=== PATIENT | female | born 1945 | race Caucasian/White ===

== ENCOUNTER 2023-12-25 00:26 | Emergency (ER) | payer MEDICARE, OTHER, SELFPAY ==
[2023-12-25 00:33] VITALS: BP 118/63
[2023-12-25 00:38] VITALS: BP 118/63
[2023-12-25 01:05] VITALS: BP 108/83
--- NOTE | 2023-12-25 01:19 | ED.GENMED ---
History of Present Illness
General
Chief Complaint: Anal/Rectal Problem
Source: patient and family (Daughter)
Exam Limitations: dementia (Alzheimers)
Time Seen by Provider: 12/25/23 00:40
History of Present Illness
History of Present Illness:
This is a 78 year old female that is brought in by her daughter with c/o constipation. State that the last BM that she had was on Saturday. The one before that was a week ago. States that she is on FiberCon and they have tried to increase her water
intake. State that she also takes Colace 1 tablet BID. Denies any fever, chills, chest pain, SOB, abd pain, nausea, vomiting, diarrhea, headache, dizziness, urinary burning.
Past History
Past History
ED Past Medical History: Asthma, GERD, HTN, Hypercholesterolemia, NIDDM, Hypothyroidism, Psychiatric (Depression) and Other (dementia (Alzheimer's) Back pain, Ovarian cyst, Left ankle fracture)
ED Past Surgical History: Cardiac, Cholecystectomy, Orthopedic (Left knee replacement, Right knee surgery, Bursectomy Left shoulder), Tonsilectomy and Other (Deviated septum, Breast cyst removed)
Social History
Tobacco: Former smoker
Alcohol: None
Drug: None
Personal:
Living: with family
Employment: Retired
Family History
Family History: Other (Grandmother with colon cancer)
Review of Systems
Review of Systems
Other source history: family
All Other Systems: ROS reviewed and negative except as documented in HPI and ROS
Constitutional: Reports no symptoms; Denies fever or chills
EENT: Reports no symptoms
Respiratory: Reports no symptoms; Denies cough or trouble breathing
Cardiac: Reports no symptoms; Denies chest pain
ABD/GI: Reports constipated; Denies abdominal pain, nausea, vomiting or diarrhea
: Reports no symptoms; Denies dysuria, frequency or urgency
Musculoskeletal: Reports no symptoms
Skin: Reports no symptoms
Neurological: Reports no symptoms; Denies dizzy or headache
Psychiatric: Reports no symptoms
Phy Exam
General Physical Exam
General Presentation: no apparent distress
General age: appears stated age
General Skin: warm and dry
General Habitus: elderly
General Mental: usual mental status
General Hydration: appears well hydrated
ENT Exam
ENT Exam: TM's normal, pharynx normal and neck supple
Eye Exam
Eye Exam: EOMI
Cardiovascular Exam
Cardiovascular Exam: regular rate/rhythm, no edema and normal peripheral pulses
Pulmonary Exam
Pulmonary Exam: lungs clear, no respiratory distress, no rales, chest non tender, no crackles, no rhonchi, no wheezing and no cough
Gastrointestinal Exam
Gastrointestinal Exam: normal bowel sounds, non tender, soft, no organomegaly, no pulsatile mass, non distended and other (Disimpacted for a large amount of brown stool )
Musculoskeletal Exam
Musculoskeletal Exam: full ROM and no edema
Skin Exam
Skin Exam: normal color, warm/dry, no rash and no petechia
Psychiatric Exam
Psychiatric Exam: normal mood/affect
Course
Vital Signs
Initial and Last Documented VS:
Initial Vital Signs
Temp Pulse Resp BP Pulse Ox
97.8 F 67 18 118/63 93
12/25/23 00:33 12/25/23 00:33 12/25/23 00:33 12/25/23 00:33 12/25/23 00:33
Last Documented Vital Signs
Temp Pulse Resp BP Pulse Ox
97.8 F 67 18 118/63 93
12/25/23 00:33 12/25/23 00:33 12/25/23 00:33 12/25/23 00:33 12/25/23 00:33
MDM/Problems Addressed
Differential Diagnosis Includes:
Constipation
MDM/Problems Addressed:
This is a 78 year old female that is brought in by family with c/o constipation. States that she she has not had a BM since Saturday and was crying earlier that she needed to come to the hospital that she had abd pain.
Patient was disimpacted for a large amount of stool and then went little more on the toilet. States that she did not have to go any more. Explained to daughter that she can go up on the Colace to 2 tablets in the morning and 2 at night. Will give
patient a bottle of magnesium citrate to get thinks moved form the top down. Patient can use Miralax daily and to increase her water intake. Patient can also try Prune juice and mix this with apple juice in equal amounts, heat and drink daily.
Popcorn is also a natural laxative. Patient to return with any concerns.
Chronic conditions affecting care:
Dementia
Acute Exacerbation and/or Progression of Chronic Illness:
Dementia
*Pulse Oximetry
Patient hypoxic: no
*EKG
Interpreted by ED Provider?: NA
Rate: EKG- N/A
*Showcase Trimmer Interpretation
Rate: Showcase Trimmer- N/A
*Critical Care Note
Total Time (30-74mins, 75-104mins- exclusive of procedures): Not Applicable
ED Attending Note
-
Portions of this chart may have been created with voice recognition software.� Occasional wrong word or��sound alike� substitutions may have occurred due to the inherent limitations of voice recognition software.
Discharge Plan
Departure
Patient Disposition: Home (Routine Discharge)
Date of Disposition: 12/25/23
Time of Disposition: 01:29
Patient with high blood pressure during this ER visit?: No
Condition: Good
Covid-19: Not Applicable
Discharge Problem:
Acute constipation
Instructions: Constipation, Adult (DC)
Prescriptions:
No Action
levothyroxine [Synthroid] 50 MCG tablet
50 mcg PO DAILY
paroxetine HCl 20 MG tablet
20 mg PO DAILY
doxepin 50 mg Capsule
50 mg PO HS
clonazepam 0.5 mg Tablet
0.5 mg PO HS
Patient Comments:
12/10/2022: per PDMP, last filled 10/18/22, 90 tabs for 30 days from [facility]
simvastatin 40 mg Tablet
40 mg PO QPM
pantoprazole 40 mg Tablet,Delayed Release (Dr/Ec)
40 mg PO DAILY@1500
losartan 100 mg Tablet
100 mg PO DAILY
ezetimibe 10 mg Tablet
10 mg PO QPM
memantine 10 mg Tablet
10 mg PO BID
meclizine 25 mg Tablet
25 mg PO Q8HPRN PRN (Reason: Dizziness) Qty: 10 0RF
gabapentin 100 mg capsule
200 mg PO TID Qty: 180 0RF
Referrals:
UNKNOWN - PT DOES,NOT KNOW [Family Provider] -
Activity Restrictions/Additional Instructions:
As discussed, you have had a large amount of stool removed. Please drink the entire bottle of Magnesium Citrate. This will work form the top down. This can take up to 6 hours to work. It may also cause some abd cramping. Please use Miralax daily as
directed. You may also increased your Colace to 2 tablets in the morning and night. Please try Prune juice and mix this with apple juice in equal amounts and heat and drink daily. Please increase your water intake to 8-8oz glasses daily. Please
remind patient when she is on the toilet to try and push to have a BM. IF YOU HAVE ANY OTHER CONCERNS PLEASE RETURN TO THE EMERGENCY ROOM.
Interventions
Interventions:
*Risk Screen - Suicide Last Done: 12/25/23 00:33
*General Assessment Last Done: 12/25/23 00:33
*Neglect/Abuse Screening Last Done: 12/25/23 00:33
ED- Fall Risk Assessment Last Done: 12/25/23 00:33
AF-Nnolak-Bzrupxvdvr Assessment Last Done: 12/25/23 00:50
ED-Skin Assessment Last Done: 12/25/23 00:50
Discharge Date and Time
Print Language: WELSH
[2023-12-25] MEDS: CITROMA 300 ML PO (01:54)
== END 2023-12-25 02:00 | disposition home or self-care (01) ==
LOC: EMR 00:26
PROVIDERS: EMERGENCY PHYSICIAN Student in an Organized Health Care Education/Training Program
DX: K59.09 Other constipation (principal); J45.909 Unspecified asthma, uncomplicated; K21.9 Gastro-esophageal reflux disease without esophagitis; I10 Essential (primary) hypertension; E78.00 Pure hypercholesterolemia, unspecified; E11.9 Type 2 diabetes mellitus without complications; E03.9 Hypothyroidism, unspecified; F02.83 Dementia in other diseases classified elsewhere, unspecified severity, with mood disturbance; G30.9 Alzheimer's disease, unspecified; F32.A Depression, unspecified; Z80.0 Family history of malignant neoplasm of digestive organs; Z87.891 Personal history of nicotine dependence; Z90.49 Acquired absence of other specified parts of digestive tract; Z96.652 Presence of left artificial knee joint
CPT/HCPCS: 99282

== ENCOUNTER → 2024-04-03 12:14 | Outpatient (REF) | payer MEDICARE, OTHER, SELFPAY | LOC: HWRAD 12:14 | PROVIDERS: ATTENDING PHYSICIAN Nurse Practitioner Family | DX: R06.01 Orthopnea (principal) | CPT/HCPCS: 71046 ==

== ENCOUNTER 2024-04-26 20:39 | Observation (INO) | payer MEDICARE, OTHER, SELFPAY ==
[2024-04-26] VITALS (17 sets, daily range): BP systolic 103–134; BP diastolic 41–63; PULSE 63; O2SAT 93; BMI 25.9
[2024-04-26 11:26] LABS: % Basophils 1.1 % (0-2); % Eosinophils 0.3 % (0-6); % Immature Granulocytes 0.2 % (0-0.5); % Lymphocytes 13.3 % (20.5-51.1); % Monocytes 15.4 % (1.7-9.3); % Neutrophils 69.7 % (42.2-75.2); Absolute Basophils 0.1 10^3/uL (0-0.2); Absolute Lymphocytes 0.9 10^3/uL (1.2-3.4); Absolute Neutrophils 4.6 10^3/uL (1.4-6.5); Hematocrit 40.1 % (37.0-47.0); Hemoglobin 13.6 g/dL (12.0-16.0); Mean Corp Hgb Conc. 33.9 g/dL (33.0-37.0); Mean Corpuscular Hgb 29.8 pg (27.0-31.0); Mean Corpuscular Volume 87.9 fL (81.0-99.0); Mean Platelet Volume 9.9 fL (7.4-10.4); Nucleated Red Blood Cells % 0 %; Platelet Count 227 10^3/uL (130-400); Red Blood Cell Count 4.56 10^6/uL (4.20-5.40); Red Cell Dist. Width 13.3 % (11.5-14.5); Urine Albumin Negative (Neg - Trace); Urine Bilirubin Negative (Negative); Urine Character Clear (Clear); Urine Color Yellow; Urine Glucose Negative (Negative); Urine Ketone Negative (Negative); Urine Leukocyte Negative (Negative); Urine Nitrite Negative (Negative); Urine Occult Blood Negative (Negative); Urine Specific Gravity 1.015 (<1.030); Urine Urobilinogen Negative (Neg - 1+); White Blood Cell Count 6.6 10^3/uL (4.8-10.8)
[2024-04-26 11:40] LABS: Blood Urea Nitrogen 16 mg/dl (7-17); Calcium 9.1 mg/dl (8.4-10.2); Carbon Dioxide 24 mmol/L (22-30); Chloride 105 mmol/L (98-107); Estimated Creatinine Clearance 48 ml/min; Glucose 126 mg/dl (70-99); Sodium 136 mmol/L (135-145); eGFR > 60.00
[2024-04-26 13:04] LABS: Potassium 4.3 mmol/L (3.5-5.1)
[2024-04-26 13:08] LABS: COVID-19 Antigen Negative (Negative)
[2024-04-26 13:52] LABS: TSH Reflex To Free T4 1.65 uIU/ml (0.47-4.68)
--- NOTE | 2024-04-26 13:54 | EDRN ---
physical therapy currently at the pts bedside
--- NOTE | 2024-04-26 13:56 | ED.GENMED ---
History of Present Illness
General
Chief Complaint: Weakness
Source: patient
Exam Limitations: none
Time Seen by Provider: 04/26/24 12:07
Nursing documentation reviewed up to this point in time: agreed with
History of Present Illness
History of Present Illness:
78year-old female past medical history of dementia hypertension of lipidemia presenting to the emergency department today with increased weakness over the past few days also slid out of bed twice in the last 24 hours difficulty with ambulation as
well. Denies specific injury denies specific symptoms.
Past History
Past History
ED Past Medical History: Asthma, GERD, HTN, Hypercholesterolemia, NIDDM, Hypothyroidism, Psychiatric (Depression) and Other (dementia (Alzheimer's) Back pain, Ovarian cyst, Left ankle fracture)
ED Past Surgical History: Cardiac, Cholecystectomy, Orthopedic (Left knee replacement, Right knee surgery, Bursectomy Left shoulder), Tonsilectomy and Other (Deviated septum, Breast cyst removed)
Social History
Tobacco: Former smoker
Alcohol: None
Drug: None
Personal:
Living: with family
Employment: Retired
Family History
Family History: Other (Grandmother with colon cancer)
Review of Systems
Review of Systems
Allergies reviewed?: Yes
All Other Systems: ROS reviewed and negative except as documented in HPI and ROS
Phy Exam
Physical Exam
Physical Exam:
GENERAL: Alert , in no apparent distress
EYE: pupils equal and reactive
NECK: Supple, no significant adenopathy.
ENT: o/p clr, mmm.
CARDIAC: Regular rate and rhythm .
LUNGS: Clear breath sounds bilaterally, no acute respiratory distress, no wheezes/rales/rhonchi
ABDOMEN: Soft, without focal tenderness, no r/g, no cvat
NEUROLOGICAL: Alert no focal neuro deficits
SKIN: Warm and dry, skin intact.
MUSCULOSKELETAL: No edema, well perfused.
PSYCH: Normal and appropriate interaction.
Course
Orders/Labs/Results
Orders:
Orders
04/26/24 11:06
EKG [Electrocardiogram (*1)] Urgent
Reason for Study: Fatigue / Weakness
04/26/24 11:07
EKG- Treatment ONCE
04/26/24 11:09
Basic Metabolic Panel Urgent
Complete Blood Count/With Diff Urgent
Urinalysis Reflex To Culture Urgent
Date Specimen was Collected: 04/26/24
Time Specimen was Collected: 11:07
04/26/24 12:18
Add On- LAB Urgent
Tests Added?: tsh free t4
CT Head W/o Iv Contrast Urgent
Comment:
Reason For Exam: fall hx of dementia
04/26/24 12:19
Pt Eval And Treat Urgent
Activity Level: Ambulate
04/26/24 12:40
COVID-19 Antigen Urgent
Source: Nasal Swab
Potassium Urgent
TSH Reflex To Free T4 Urgent
Comment: ADD ON
Influenza A+B Rapid Molecular Urgent
MARI Source: Nasal Swab
Specimen Description:
04/26/24 13:58
Case Management Consult ONCE
Case Management Consult: Discharge Planning
Abnormal Lab Results
04/26/24
11:09
Absolute Lymphs (auto) 0.9 L 10^3/uL
(1.2-3.4)
Absolute Monos (auto) 1.0 H 10^3/uL
(0.1-0.6)
Lymphocytes % 13.3 L %
(20.5-51.1)
Monocytes % 15.4 H %
(1.7-9.3)
Glucose 126 H mg/dl
(70-99)
04/26/24 11:09
04/26/24 12:40
Vital Signs
Initial and Last Documented VS:
Initial Vital Signs
Pulse Resp Pulse Ox
63 19 91
04/26/24 11:08 04/26/24 11:08 04/26/24 11:08
Last Documented Vital Signs
Temp Pulse Resp BP Pulse Ox
99.6 F 64 20 103/52 94
04/26/24 11:21 04/26/24 16:14 04/26/24 16:14 04/26/24 16:14 04/26/24 16:14
MDM/Problems Addressed
MDM/Problems Addressed:
78-year-old female presenting to the emergency department today with concerns of generalized weakness fatigue sliding out of bed twice in the last 24 hours. Vital signs normal on arrival patient no distress no focal symptoms. Labs unremarkable
urinalysis normal head CT negative EKG without emergent findings. No signs of emergent pathology. At this point patient unable to ambulate well. Patient was seen by PT and still unable to ambulate without significant assistance unsafe to go home
in this condition may be secondary to deconditioning due to viral illness. Plan to admit to the hospital for reassessment and potential placement as needed. Case management was consulted as well and did see the patient.
*Critical Care Note
Total Time (30-74mins, 75-104mins- exclusive of procedures): Not Applicable
ED Attending Note
-
Portions of this chart may have been created with voice recognition software.� Occasional wrong word or��sound alike� substitutions may have occurred due to the inherent limitations of voice recognition software.
Discharge Plan
Departure
Patient Disposition: Admit
Date of Disposition: 04/26/24
Time of Disposition: 17:50
Admit to: Med/Surg
Admit to doctor: gissely
Presentation/result/management discussed w/ accepting MD/DO: Hospitalist
Patient with high blood pressure during this ER visit?: No
Condition: Good
Covid-19: Not Applicable
Discharge Problem:
Ambulatory dysfunction, Acute viral syndrome
Prescriptions:
No Action
levothyroxine [Synthroid] 50 MCG tablet
50 mcg PO DAILY
paroxetine HCl 20 MG tablet
20 mg PO DAILY
doxepin 50 mg Capsule
50 mg PO HS
clonazepam 0.5 mg Tablet
0.5 mg PO HS
Patient Comments:
12/10/2022: per PDMP, last filled 10/18/22, 90 tabs for 30 days from [facility]
simvastatin 40 mg Tablet
40 mg PO QPM
ezetimibe 10 mg Tablet
10 mg PO QPM
memantine 10 mg Tablet
10 mg PO BID
docusate sodium [Colace] 100 mg Capsule
100 mg PO DAILY
aripiprazole [Abilify] 2 mg Tablet
2 mg PO HS
rivastigmine 4.6 mg/24 hour Patch 24 Hour
4.6 mg TRANSDERMAL DAILY
gabapentin 100 mg capsule
300 mg PO HS
Referrals:
Alexandru Queen CRNP [Family Provider] -
Interventions
Interventions:
*Risk Screen - Suicide Last Done: 04/26/24 11:21
*General Assessment Last Done: 04/26/24 11:21
*Neglect/Abuse Screening Last Done: 04/26/24 11:21
*ED- Fall Risk Assessment Last Done: 04/26/24 11:21
*ED COVID-19 Vaccine History Last Done: 04/26/24 11:21
ED- Cardiac Assessment Last Done: 04/26/24 11:21
ED- Neurological Assessment Last Done: 04/26/24 11:21
ED- Pulmonary Assessment Last Done: 04/26/24 11:21
Discharge Date and Time
Print Language: HUNGARIAN
--- NOTE | 2024-04-26 14:59 | EDRN ---
awaiting for case management to come to the pts bedside
--- NOTE | 2024-04-26 16:14 | EDRN ---
case management currently at the pts bedside
--- NOTE | 2024-04-26 16:25 | CM ---
Patient seen at bedside with patient daughter. Patient daughter states that patient lives with her in a 2 bedroom home with caregivers from 9-5 Saturday through Saturday and the family helps on the weekend. Patient was unable to stand overnight
and therapy saw her and are recommending SNF placement. Patient daughter does not want patient to go to a SNF when paying privately due to concerns about care. CM reviewed options and patient daughter wants to talk to her father about options.
Physician plan is to admit for short stay to determine if patient is able to return. Patient PCP is Dr. Killian and they use the [facility] [place]. CM will continue to follow for discharge planning needs.
Plan; home with aides/ watch for VN needs vs SNF pending patient choice.
watch for OBS vs INP pending physician assessment.
--- NOTE | 2024-04-26 16:37 | EDRN ---
case management currently at the pts bedside speaking with the pts daughter, the pts daughter stated that the pt needed to urinate, this RN explained the use of the pure wick and the pt and the pts daughter agreed, this RN put pure wick in place,
will continue to monitor the pt closely
--- NOTE | 2024-04-26 20:04 | HPS.HSE ---
Addendum entered and electronically signed by Richard Howard MD 04/26/24 22:38:
Daughter called her father
Patient with HX Dementia.
Father/ Spouse ( NOK ) indicate patient is FULL CODE. NOT DNR
Addendum entered and electronically signed by Richard Howard MD 04/26/24 20:36:
Code status; DNR confirmed by daughter at bed side
Original Note:
Family Physician
-
Family Physician: LEWIS Santos
Chief Complaint
-
increased weakness and fatigue
History of Present Illness
HPI
78F former smoker Lives in private residence with adamdery , HX dementia, HTN, HLD, NIDDM, Hypothyroidism, Depression and Back pain sen at ER;
- increased weakness over the past few days also slid out of bed twice in the last 24 hours
- Unable to walk today due to generalized weakness/fatigue. .
- PT saw and unable to ambulate without heavy assist.
ER Evaluation:
Vital signs normal on arrival patient no distress no focal symptoms.
Labs unremarkable
NEG UA
NEG HCT for acute pathology
EKG without emergent findings.
No signs of emergent pathology
ROS
Denies specific injury denies specific symptoms.
Medical History
Past Medical History
Past Medical History: Reports Dementia, HTN, Hypercholesterolemia, NIDDM and Psychiatric (depression)
Past Surgical History: Reports Other
Social History
Unable to obtain full social history at this time due to: Dementia
Tobacco: Former Smoker
Alcohol: None
Drug: None
Family History
Family History: Not pertinent
Allergies / Home Medications
Allergies reflects when Allergies were last updated in [facility].
Home Medications with original date entered in [facility]
Allergy/Medication List:
Allergies
Allergy/AdvReac Type Severity Reaction Status Date / Time
cinnamon Allergy Unknown Verified 12/25/23 00:29
oxycodone HCl [From Percocet] Allergy nausea & Verified 12/25/23 00:29
dizziness
propoxyphene napsylate Allergy nausea & Verified 12/25/23 00:29
[From Darvocet-N 100] dizziness
tramadol HCl [From Ultram] Allergy throws up Verified 12/25/23 00:29
MOLD AND MILDEW Allergy NASAL Uncoded 12/25/23 00:29
CONGESTION
Home Medications
levothyroxine 50 mcg tablet (Synthroid) 50 mcg PO DAILY Hypothyroidism 07/21/08
paroxetine HCl 20 mg tablet 20 mg PO DAILY anxiety 07/21/08
clonazepam 0.5 mg tablet 0.5 mg PO HS anxiety 12/10/22
doxepin 50 mg capsule 50 mg PO HS Depression 12/10/22
ezetimibe 10 mg tablet 10 mg PO QPM Hyperlipidemia 12/10/22
memantine 10 mg tablet 10 mg PO BID Dementia 12/10/22
simvastatin 40 mg tablet 40 mg PO QPM Hyperlipidemia 12/10/22
aripiprazole 2 mg tablet (Abilify) 2 mg PO QPM 04/26/24
docusate sodium 100 mg capsule (Colace) 100 mg PO DAILY 04/26/24
gabapentin 300 mg capsule 300 mg PO HS 04/26/24
polyethylene glycol 3350 17 gram/dose oral powder (Miralax) 17 g PO DAILY 04/26/24
rivastigmine 9.5 mg/24 hour transdermal patch 9.5 mg transdermal QPM 04/26/24
Review of Systems
-
Unable to obtain full review of systems at this time due to: Dementia
History Source: Physician
Constitutional: Reports Fatigue; Denies Fever, Weight Gain or Weight Loss
EENT: Denies Sore Throat, Mouth Pain or Mouth Swelling
Respiratory: Denies Cough, Hemoptysis or Trouble Breathing
Cardiac: Denies Chest Pain, Diaphoresis, Palpitations or Syncope
Abdomen/GI: Denies Abdominal Pain, Nausea, Vomiting, Diarrhea or Constipated
: Denies Dysuria, Frequency or Flank Pain
Musculoskeletal: Denies Joint Pain, Joint Swelling, Muscle Pain or Muscle Stiffness
Skin: Denies Itching or Rash
Neurological: Reports Dizzy; Denies Headache, Weakness or Numbness
Endocrine: Denies Polyuria, Polydipsia or Temp Intolerance
Hematologic/Lymphatic: Denies Bleeding, Swollen Glands or Bruising
Psych: Reports Calm, Depression, Anxiety and Dementia
Physical Exam
Vital Signs
Vital Signs
Temp Pulse Resp BP Pulse Ox
99.6 F 64 20 117/49 94
04/26/24 11:21 04/26/24 16:45 04/26/24 16:45 04/26/24 19:12 04/26/24 19:12
Physical Exam
General: Well Developed, Well Nourished, No Apparent Distress and Conversant
HEENT: NormoCephalic, Moist mucous membranes and Atraumatic
Respiratory: Clear
Cardiac: S1/S2 and Regular Rhythm; No Murmur or Rub
GI: Soft, Non Tender, Non Distended and Normal Bowel Sounds; No Organomegaly
Rectal: Deferred by Provider
Musculoskeletal: No Clubbing, No Cyanosis and No Edema
Skin: No Rash
Neuro: Nonfocal/grossly intact
Laboratory Results
-
04/26/24 11:09
04/26/24 12:40
Laboratory Results
Total Bilirubin Cancelled 04/26/24 11:09
AST Cancelled 04/26/24 11:09
ALT Cancelled 04/26/24 11:09
Alkaline Phosphatase Cancelled 04/26/24 11:09
Data Reviewed
-
CT Scan: Report Reviewed by me
Medical Tests (Nuc Med, Echo, EKG etc): Report Reviewed by me
Lab Data: Labs Reviewed by me
Old Records: Reviewed
Impression/Plan
-
Data
Laboratory Tests
04/26/24 04/26/24
11:09 12:40
WBC 6.6
Hgb 13.6
Plt Count 227
Sodium 136
Potassium 4.3
Creatinine 0.9
eGFR > 60.00
TSH (Reflex) 1.65
CT Head W/o Iv Contrast
- No evidence of acute intracranial abnormality
Last hospitalist admission: 12/10/22 - 12/11/22 DC Dx; Dizziness
ASSESSMENT & PLAN
Suspect viral syndrome with mild URI symptom complicated by general debility with acute on chroni ambulatory dysfunction and further deconditioning demented elderly lady on [facility] pharmacy
Unable to walk today due to generalized weakness/fatigue.
HX chronic ambulatory dysfunction : use walket
- PT saw and unable to ambulate without heavy assist.
- Vital signs normal on arrival patient no distress no focal symptoms.
- Labs unremarkable
- Covid/flu neg
- NEG UA
- NEG HCT for acute pathology
- EKG without emergent findings.
- No signs of emergent pathology
- PT
- CRM consult for DC planning
Poly pharmacy for Depression and dementia Alzheimer type ( [facility])
Chr inosemia on Doxepin
Chr LBP
- cont Abilify, Clonazepam, Doxepin
- Hold Paroxetine for now
- On Rivastigmine and memantine
Pre existing condition:
Benign HTN
Hypercholesterolemia on Simvastatin and Ezetimibe
NIDDM
Hypothyroidism on LT4; nl TSH
- cont. all OP Meds
DVT Px: LMWH
Full code
Obs MS
[2024-04-26] MEDS: NSS 1000 IV (21:17)
[2024-04-26] MEDS: KLONOPIN 0.5 MG PO (21:17)
[2024-04-26] MEDS: ABILIFY 2 MG PO (23:11)
[2024-04-26] MEDS: NAMENDA 10 MG PO (23:11)
[2024-04-26] MEDS: SINEQUAN 50 MG PO (23:11)
[2024-04-27] VITALS (7 sets, daily range): BP systolic 136–148; BP diastolic 58–81; PULSE 64; BMI 25.7
[2024-04-27] MEDS: SYNTHROID 50 MCG PO (06:01)
[2024-04-27 06:30] LABS: Hematocrit 39.4 % (37.0-47.0); Hemoglobin 13.3 g/dL (12.0-16.0); Mean Corp Hgb Conc. 33.8 g/dL (33.0-37.0); Mean Corpuscular Volume 88.7 fL (81.0-99.0); Mean Platelet Volume 9.7 fL (7.4-10.4); Platelet Count 206 10^3/uL (130-400); Red Blood Cell Count 4.44 10^6/uL (4.20-5.40); Red Cell Dist. Width 13.3 % (11.5-14.5); White Blood Cell Count 6.1 10^3/uL (4.8-10.8)
[2024-04-27 07:06] LABS: Blood Urea Nitrogen 15 mg/dl (7-17); Calcium 8.8 mg/dl (8.4-10.2); Carbon Dioxide 21 mmol/L (22-30); Chloride 107 mmol/L (98-107); Estimated Creatinine Clearance 48 ml/min; Glucose 128 mg/dl (70-99); Potassium 3.8 mmol/L (3.5-5.1); Sodium 140 mmol/L (135-145); eGFR > 60.00
--- NOTE | 2024-04-27 07:07 | EDRN ---
this RN was receiving verbal report from previous assistant casino shift manager nurse Kalin RN, while this RN was getting report the pts daughter approached this RN and Kalin RN at the nurses station and stated that she is 'very upset' about her mother still being
in the ER and feels that this is 'not conducive to healing', the pts daughter stated that her mother, the pt, did not sleep all night and the pts daughter stated that she doesn't understand why the pt is still down here and 'not upstairs in a bed
where it is quiet and she can rest, i mean she is not your normal patient this is ridiculous', this RN apologized to the pts daughter for her frustration and this RN stated that this RN will notify the pts daughter when a bed is available
--- NOTE | 2024-04-27 07:30 | EDRN ---
the pts daughter approached this RN in the hallway and expressed her concerns again regarding her mother, the pt, still being in the ER, this RN notified the charge nurse and the nursing supervisor shearing Eleazar
--- NOTE | 2024-04-27 07:39 | EDRN ---
this RN noticed that the pts daily medications were not ordered, this RN will notify the provider, the pts daughter approached this RN at the nurses station and notified this RN that the pts care given will be coming to be with the pt
--- NOTE | 2024-04-27 08:08 | EDRN ---
the pt approached this RN at the nurses station and asked this RN to come to the pts bedside, this RN entered the pts room and the pts daughter stated that,'I am concerned, i need to see a doctor to speak to them about the plan for my mother, she is
stuck down here and i just need some answers, i need to know what medications she is going to be put on and i need to know the plan for today and i also want to get my mother some breakfast so how does that work', this RN provided the pts daughter
with a menu and stated that she could call down to the kitchen and order her mother breakfast and this RN notified the pts daughter that the pt is on a cholesterol lowering diet, this RN reached out to the attending Dr. Alegre and notified the
provider that the pts daughter wishes to speak with them, Dr. Alegre is currently at the pts bedside
--- NOTE | 2024-04-27 08:21 | EDRN ---
Dr. Alegre currently still at the pts bedside
--- NOTE | 2024-04-27 08:31 | EDRN ---
Dr. Aelgre updated this RN on the pts plan of care and will order the rest of the pts daily medication, the provider will also change the pts diet to a regular diet
--- NOTE | 2024-04-27 08:42 | EDRN ---
the pts daughter approached this RN at the nurses station and asked this RN to come to the pts bedside, the pts daughter stated, 'Her urine canister is almost full and i would like it changed', this RN changed the pts urine canister that is attacked
to the pure wick and suction was turned on, the pts brief is clean and dry, the pt was repositioned in stretcher with Monica RN for comfort, no s/s of distress, the pts daughter ordered the pts breakfast
[2024-04-27 09:09] LABS: Glycohemoglobin (HgbA1c) 6.8 % (4.0-5.6)
--- NOTE | 2024-04-27 10:17 | EDRN ---
the pts daughter approached this RN at the nurses station and asked to speak to a doctor, this RN notified Dr. Alegre
[2024-04-27] MEDS: NSS 1000 IV (10:25)
[2024-04-27] MEDS: COLACE 100 MG PO (10:25)
[2024-04-27] MEDS: MIRALAX 17 GRAMS PO (10:25)
[2024-04-27] MEDS: PAXIL 20 MG PO (10:25)
[2024-04-27] MEDS: NAMENDA 10 MG PO ×2 (10:25→20:49)
--- NOTE | 2024-04-27 10:27 | EDRN ---
the pt was able to take AM medication with water with no issues, this RN notified the pts daughter that Dr. Alegre will come to the pts bedside at 1139
--- NOTE | 2024-04-27 10:32 | EDRN ---
the pts daughter is standing at the pts door staring at this RN, this RN asked the pt if there is anything that she needed and the pts daughter stated that she wants physical therapy at the pts bedside and that she wants to speak to a provider, this
RN notified the pts daughter that this RN reached out to Dr. Alegre and he stated that she was going to come to the pts bedside around 1130, this RN also notified the pts daughter that this RN could reach out to physical therapy to see what time
they would be in to see the pt
--- NOTE | 2024-04-27 10:49 | EDRN ---
the pts daughter pressed the call dietz and this RN and Monica AVELAR entered the pts room, the pts daughter wanted the pt hooked back up to the pure wick, this RN notified the pts daughter that the pt was already on the pure wick, the pts daughter
stated that she and the pts aid turned off the suction to the pure wick, this RN turned the suction for the pure wick back on, the pts daughter asked if the pt was going to get out of bed today and this RN notified the pts daughter that physical
therapy would be down to assess the pt, the pts daughter asked when physical therapy would be down and this RN notified the pts daughter that this RN would try to find out, the pt is resting in stretcher in the lowest position, side rails up x2,
call dietz within reach, HOB elevated no s/s of distress, VS obtained and WNL, the pts brief is currently still clean and dry, per the pts daughter the pt ate all of her breakfast, will continue to monitor the pt closely
--- NOTE | 2024-04-27 11:25 | EDRN ---
this RN asked the community education specialist to call physical therapy to see when they are coming to assess the pt and they stated that they would come as soon as they could
--- NOTE | 2024-04-27 11:57 | EDRN ---
the pts daughter pressed the call dietz and this RN entered the pts room, the pts daughter stated that she thinks her mother's brief is wet, this RN checked the pts brief and it is clean and dry, the pts daughter stated, 'It sounds like something wet
is coming out', this RN explained to the pts daughter that the pt is actively urinating, provider stepped into the pts room, will continue to monitor the pt closely
--- NOTE | 2024-04-27 12:08 | EDRN ---
Dr. Cuellar entered the pts room as well as this RN, Dr. Cuellar discussed the pts plan of care with the pts daughter, the pts daughter again expressed her frustration and dissatisfaction with the pt being in the ER and not in a 'room upstairs', this RN
apologized to the pts daughter for her frustration, this RN notified the charge nurse and nursing supervisor [employer]
--- NOTE | 2024-04-27 12:51 | W.PN.HOSP.TC ---
Today's Communication/Plan
-
* PT-OT.
* Continue home medications.
* Hydroxyzine for anxiety.
Assessment / Plan
Assessment / Plan
Assessment
Fifi Keith, 78-year-old female, has felt fatigued and weak for the past day or so. She had a hard time getting out of bed and then slipped onto the floor; was unable to get up and had to call 911. They helped her get back to bed, but
subsequently she was unable to get out of bed. Her also had a heart attack a week ago and is unable to take care of her. Her daughter is overwhelmed with taking care of both and came to the hospital due to her persistent ambulatory issues.
In the ED, the patient also had a cough and nasal congestion.
Impression and plan
Acute viral upper respiratory infection
- Work up, including CXR, UA, blood work, CT head, ECG, COVID-19, inflenza and physical exam unremarkable for acute pathologies.
- Mild cough and nasal congestion noted.
- Likely that the viral URI worsened the baseline ambulatory dysfunction in setting of known Alzheimer's.
- Admit for observation.
- PT-OT.
Alzheimer's dementia
Ambulatory dysfunction.
- Weak and deconditioned at baseline.
- PT-OT.
- Likely needs skilled-rehab.
- Likes at home but exploring long-term care options.
- Case management consult.
- Can continue home medications as prescribed.
Hypothyroidism
- Continue levothyroxine.
Chronic insomnia
- Can continue home meds.
Chronic constipation
- Continue home regimen.
Hyperlipidemia
- Continue statin and ezetimibe.
Generalized anxiety disorder
- Continue paroxetine.
- Hydroxyzine as needed.
Diet-controlled diabetes mellitus
- Stable; A1c at goal.
- Daughter requesting regular diet.
Thromboprophylaxis
- Enoxaparin.
Code status
- Full.
Anticipated Discharge: 24 - 48 hours
Subjective/Interval History
-
Date of Service: April 27, 2024
Stable overnight.
Objective Data
-
Labs:
Laboratory Results
04/27/24
06:15
WBC 6.1
Hgb 13.3
Hct 39.4
Plt Count 206
Sodium 140
Potassium 3.8
Chloride 107
Carbon Dioxide 21 L
BUN 15
Creatinine 0.9
Glucose 128 H
Calcium 8.8
Vital Signs:
Vital Signs
Temp Pulse Resp BP Pulse Ox
98.9 F 82 20 136/81 96
04/27/24 10:53 04/27/24 10:53 04/27/24 10:53 04/27/24 10:53 04/27/24 10:53
Review of Systems
-
History Source: Patient
Constitutional: Reports Fatigue
EENT: Reports No Symptoms Reported
Respiratory: Reports Cough
Cardiac: Reports No Symptoms
Abdomen/GI: Reports No Symptoms
Genitourinary: Reports No Symptoms
Musculoskeletal: Reports No Symptoms
Skin: Reports No Symptoms
Neuro: Reports No Symptoms
Endocrine: Reports No Symptoms
Hematologic / Lymphatic: Reports No Symptoms
Allergy / Immunology: Reports No Symptoms
Physical Exam
-
General: No Apparent Distress and Comfortable
HEENT: Normocephalic, Atraumatic, Moist Mucous Membranes, Anicteric and No Ptosis
Respiratory: Clear to Auscultation and Non Labored Respirations
Cardiac: Regular Rhythm and S1/S2
GI: Soft, Nontender and Nondistended
Genito-urinary: No Costovertebral Tender
Musculoskeletal: No Clubbing, No Cyanosis and No Edema
Skin: Warm, Dry and IV Access / Catheter Site
Neuro: Awake, Alert and Oriented
Hematologic / Lymphatic: No Lymphadenopathy
Psych: Calm
--- NOTE | 2024-04-27 13:30 | EDRN ---
the pts caregiver approached this RN at the nurses station and stated that she wanted the pt repositioned, this RN and Monica RN repositioned the pt however the pt stated that she had a bowel movement, the pt was cleaned with soap and water and a
new pad, brief, and gown were placed, the pt is resting in stretcher in the lowest position, side rails up x2, call dietz within reach, HOB elevated, no s/s of distress, will continue to monitor the pt closely
--- NOTE | 2024-04-27 14:33 | EDRN ---
physical therapy at the pts bedside, the pt is sitting up in chair
--- NOTE | 2024-04-27 16:04 | EDRN ---
the pts daughter called the ED asking to speak go this RN this RN got on the phone with the pts daughter and the pts daughter was hysterically crying and stated, 'I cannot have her in the ED for another night, it is loud and noisy and she needs
to be checked on very frequently and she needs daily baths and she needs her teeth brushed and i just don't think that the ER is appropriate for my mother, she isn't getting the care that she needs there no offense to you guys but it isn't fair to
her', this RN apologized to the pts daughter and helped to calm the pts daughter down, this RN put the pts daughter on hold while this RN notified the ED charge nurse and the nursing transmission maintenance supervisor, the pt was given a room of 424, this RN notified the
pts daughter
--- NOTE | 2024-04-27 16:43 | EDRN ---
this RN called the receiving nurse Joya and gave verbal report, paper report was also tubed up to the receiving unit
--- NOTE | 2024-04-27 17:20 | EDRN ---
new PIV placed, RAC #[id number] PIV placed, the pt was assisted from the chair to the stretcher and brief was changed, the pt was repositioned in stretcher for comfort, the pt was sent upstairs with all of her belongings accompanied by her daughter and her
[2024-04-27] MEDS: ZOFRAN 4 MG IV (17:39)
[2024-04-27] MEDS: LOVENOX 40 MG SC (17:40)
[2024-04-27] MEDS: ZETIA 10 MG PO (18:12)
[2024-04-27] MEDS: ABILIFY 2 MG PO (18:12)
[2024-04-27] MEDS: EXELON PATCH 9.5 MG TRANSDERM (18:12)
[2024-04-27] MEDS: LIPITOR 20 MG PO (18:12)
[2024-04-27] MEDS: SINEQUAN 50 MG PO (22:12)
[2024-04-27] MEDS: NEURONTIN 300 MG PO (22:13)
[2024-04-27] MEDS: KLONOPIN 0.5 MG PO (22:13)
[2024-04-28] MEDS: ATARAX 25 MG PO (00:45)
--- NOTE | 2024-04-28 01:59 | PTCARENOTE ---
Patient pulled out 2 IVs over the last 3-4 hours. Each time the IV site was wrapped with either gauze or BONILLA wrap and a no-no. Daughter reported earlier in shift that mother picks at things. CARD GRINDER notified via TT and inquired if IV fluids were still
needed prior to contacting IV team again. Per CARD GRINDER, 'its ok to not give the fluids if she is eating well and vital signs are ok, but will need IV access in case of emergency.' PRN Atarax given prior to 3rd IV placement. Patient has been drinking water
during shift and vitals are stable (143/72, HR 68, RR 16, temp 97.0). IV fluids are not currently running. IV site is currently wrapped with gauze and no-no. Patient was lightly picking at no-no, but recently fell asleep. Mitts ordered if needed.
[2024-04-28] MEDS: SYNTHROID PO (05:39)
[2024-04-28 07:00] VITALS: BP 132/60
[2024-04-28 08:22] LABS: Hematocrit 42.1 % (37.0-47.0); Hemoglobin 13.8 g/dL (12.0-16.0); Mean Corp Hgb Conc. 32.8 g/dL (33.0-37.0); Mean Corpuscular Hgb 29.6 pg (27.0-31.0); Mean Corpuscular Volume 90.3 fL (81.0-99.0); Mean Platelet Volume 10.1 fL (7.4-10.4); Platelet Count 222 10^3/uL (130-400); Red Blood Cell Count 4.66 10^6/uL (4.20-5.40); Red Cell Dist. Width 13.4 % (11.5-14.5)
[2024-04-28 09:11] LABS: ALT (SGPT) 25 U/L (0-35); AST (SGOT) 29 U/L (14-36); Albumin 3.4 g/dl (3.5-5.0); Alkaline Phosphatase 83 U/L (38-126); Blood Urea Nitrogen 14 mg/dl (7-17); Calcium 8.8 mg/dl (8.4-10.2); Carbon Dioxide 26 mmol/L (22-30); Chloride 108 mmol/L (98-107); Estimated Creatinine Clearance 48 ml/min; Glucose 112 mg/dl (70-99); Sodium 141 mmol/L (135-145); Total Bilirubin 0.5 mg/dl (0.2-1.3); Total Protein 6.5 g/dl (6.3-8.2); eGFR > 60.00
[2024-04-28] MEDS: NAMENDA 10 MG PO ×2 (09:56→20:42)
[2024-04-28] MEDS: COLACE 100 MG PO (09:56)
[2024-04-28] MEDS: PAXIL 20 MG PO (09:56)
[2024-04-28] MEDS: MIRALAX 17 GRAMS PO (09:57)
[2024-04-28] MEDS: SYNTHROID 50 MCG PO (10:05)
--- NOTE | 2024-04-28 12:35 | W.PN.HOSP.TC ---
Today's Communication/Plan
-
* PT-OT.
* Optimize sleep medications with early dosing.
* Likely discharge tomorrow.
Assessment / Plan
Assessment / Plan
Assessment
Fifi Keith, 78-year-old female, has felt fatigued and weak for the past day or so. She had a hard time getting out of bed and then slipped onto the floor; was unable to get up and had to call 911. They helped her get back to bed, but
subsequently she was unable to get out of bed. Her also had a heart attack a week ago and is unable to take care of her. Her daughter is overwhelmed with taking care of both and came to the hospital due to her persistent ambulatory issues.
In the ED, the patient also had a cough and nasal congestion.
Impression and plan
Acute viral upper respiratory infection
- Work up, including CXR, UA, blood work, CT head, ECG, COVID-19, inflenza and physical exam unremarkable for acute pathologies.
- Mild cough and nasal congestion noted.
- Likely that the viral URI worsened the baseline ambulatory dysfunction in setting of known Alzheimer's.
- Admit for observation.
- PT-OT.
Degcqpqu-fm-zxqabr Alzheimer's dementia
Ambulatory dysfunction
- Weak and deconditioned at baseline.
- PT-OT.
- Likely needs skilled-rehab.
- Likes at home but exploring long-term care options.
- Case management consult.
- Can continue home medications as prescribed.
Hypothyroidism
- Continue levothyroxine.
Chronic insomnia
- Worse at this admission.
- Will optimize home meds.
Chronic constipation
- Continue home regimen.
Hyperlipidemia
- Continue statin and ezetimibe.
Generalized anxiety disorder
- Continue paroxetine.
- Hydroxyzine as needed.
Diet-controlled diabetes mellitus
- Stable; A1c at goal.
- Daughter requesting regular diet.
Thromboprophylaxis
- Enoxaparin.
Code status
- Full.
Anticipated Discharge: Within 24 hours
Subjective/Interval History
-
Date of Service: April 28, 2024
Pulled out her IV overnight.
Objective Data
-
Labs:
Laboratory Results
04/28/24 04/28/24
07:40 07:41
WBC 7.0
Hgb 13.8
Hct 42.1
Plt Count 222
Sodium 141
Potassium 4.0
Chloride 108 H
Carbon Dioxide 26
BUN 14
Creatinine 0.9
Glucose 112 H
Calcium 8.8
Total Bilirubin 0.5
AST 29
ALT 25
Alkaline Phosphatase 83
Vital Signs:
Vital Signs
Temp Pulse Resp BP Pulse Ox
97.6 F 52 18 132/60 93
04/28/24 07:00 04/28/24 07:00 04/28/24 07:00 04/28/24 07:00 04/28/24 07:00
I&O
04/27/24 04/28/24 04/29/24
06:59 06:59 06:59
Intake Total 480 / 480
Balance 480 / 480
Review of Systems
-
History Source: Patient
Constitutional: Reports Fatigue
EENT: Reports No Symptoms Reported
Respiratory: Reports Cough
Cardiac: Reports No Symptoms
Abdomen/GI: Reports No Symptoms
Genitourinary: Reports No Symptoms
Musculoskeletal: Reports No Symptoms
Skin: Reports No Symptoms
Neuro: Reports No Symptoms
Endocrine: Reports No Symptoms
Hematologic / Lymphatic: Reports No Symptoms
Allergy / Immunology: Reports No Symptoms
Physical Exam
-
General: No Apparent Distress and Comfortable
HEENT: Normocephalic, Atraumatic, Moist Mucous Membranes, Anicteric and No Ptosis
Respiratory: Clear to Auscultation and Non Labored Respirations
Cardiac: Regular Rhythm and S1/S2
GI: Soft, Nontender and Nondistended
Genito-urinary: No Costovertebral Tender
Musculoskeletal: No Clubbing, No Cyanosis and No Edema
Skin: Warm, Dry and IV Access / Catheter Site
Neuro: Awake, Alert and Oriented
Hematologic / Lymphatic: No Lymphadenopathy
Psych: Calm
[2024-04-28 15:00] VITALS: BP 134/56
[2024-04-28] MEDS: LIPITOR 20 MG PO (18:50)
[2024-04-28] MEDS: EXELON PATCH 9.5 MG TRANSDERM (18:50)
[2024-04-28] MEDS: LOVENOX 40 MG SC (18:51)
[2024-04-28] MEDS: ZETIA 10 MG PO (18:54)
[2024-04-28] MEDS: ABILIFY 5 MG PO (18:54)
[2024-04-28] MEDS: NEURONTIN 300 MG PO (21:09)
[2024-04-28] MEDS: SINEQUAN 50 MG PO (21:11)
[2024-04-28] MEDS: KLONOPIN 0.5 MG PO (21:11)
[2024-04-28] MEDS: NSS IV ×2 (21:37→21:38)
[2024-04-28 23:10] VITALS: BP 127/54
--- NOTE | 2024-04-29 04:23 | DOWNTIME ---
There was a [employer] Downtime on 04/29/2024 from 0100 to 04/30/2023 at 0420 . Downtime documentation of patient's care, including medication administrations, has been reconciled in the electronic record per guidelines. Refer to the
patient's paper chart under the miscellaneous tab to see printed paper medication records and downtime forms.
[2024-04-29 06:00] VITALS: BMI 27.6
[2024-04-29 07:00] VITALS: BP 142/72
[2024-04-29 08:08] LABS: Hematocrit 37.8 % (37.0-47.0); Hemoglobin 12.4 g/dL (12.0-16.0); Mean Corp Hgb Conc. 32.8 g/dL (33.0-37.0); Mean Corpuscular Hgb 29.7 pg (27.0-31.0); Mean Corpuscular Volume 90.4 fL (81.0-99.0); Mean Platelet Volume 10.4 fL (7.4-10.4); Platelet Count 215 10^3/uL (130-400); Red Blood Cell Count 4.18 10^6/uL (4.20-5.40); Red Cell Dist. Width 13.3 % (11.5-14.5); White Blood Cell Count 4.9 10^3/uL (4.8-10.8)
[2024-04-29 08:46] LABS: Blood Urea Nitrogen 20 mg/dl (7-17); Calcium 8.4 mg/dl (8.4-10.2); Carbon Dioxide 25 mmol/L (22-30); Chloride 105 mmol/L (98-107); Estimated Creatinine Clearance 44 ml/min; Glucose 124 mg/dl (70-99); Sodium 139 mmol/L (135-145); eGFR 56.95
[2024-04-29 09:11] VITALS: BP 145/64; O2SAT 97
[2024-04-29] MEDS: SYNTHROID 50 MCG PO (09:51)
--- NOTE | 2024-04-29 10:24 | W.PN.HOSP.TC ---
Today's Communication/Plan
-
* Discharge today with home care.
Assessment / Plan
Assessment / Plan
Assessment
Fifi Keith, 78-year-old female, has felt fatigued and weak for the past day or so. She had a hard time getting out of bed and then slipped onto the floor; was unable to get up and had to call 911. They helped her get back to bed, but
subsequently she was unable to get out of bed. Her also had a heart attack a week ago and is unable to take care of her. Her daughter is overwhelmed with taking care of both and came to the hospital due to her persistent ambulatory issues.
In the ED, the patient also had a cough and nasal congestion.
Impression and plan
Acute viral upper respiratory infection
- Work up, including CXR, UA, blood work, CT head, ECG, COVID-19, inflenza and physical exam unremarkable for acute pathologies.
- Mild cough and nasal congestion noted.
- Likely that the viral URI worsened the baseline ambulatory dysfunction in setting of known Alzheimer's.
- Admit for observation.
- PT-OT.
Rbjnebxx-qm-xntaxt Alzheimer's dementia
Ambulatory dysfunction
- Weak and deconditioned at baseline.
- PT-OT.
- Likely needs skilled-rehab.
- Likes at home but exploring long-term care options.
- Case management consult.
- Can continue home medications as prescribed.
Hypothyroidism
- Continue levothyroxine.
Chronic insomnia
- Worse at this admission.
- Will optimize home meds.
Chronic constipation
- Continue home regimen.
Hyperlipidemia
- Continue statin and ezetimibe.
Generalized anxiety disorder
- Continue paroxetine.
- Hydroxyzine as needed.
Diet-controlled diabetes mellitus
- Stable; A1c at goal.
- Daughter requesting regular diet.
Thromboprophylaxis
- Enoxaparin.
Code status
- Full.
Anticipated Discharge: Today
Subjective/Interval History
-
Date of Service: April 29, 2024
Slept better through the night.
Objective Data
-
Labs:
Laboratory Results
04/29/24
07:08
WBC 4.9
Hgb 12.4
Hct 37.8
Plt Count 215
Sodium 139
Potassium 4.0
Chloride 105
Carbon Dioxide 25
BUN 20 H
Creatinine 1.0
Glucose 124 H
Calcium 8.4
Vital Signs:
Vital Signs
Temp Pulse Resp BP Pulse Ox
97.4 F 53 17 142/72 96
04/29/24 07:00 04/29/24 07:00 04/29/24 07:00 04/29/24 07:00 04/29/24 07:00
I&O
04/28/24 04/29/24 04/30/24
06:59 06:59 06:59
Intake Total 480 / 480 660 / 660 200 / 200
Balance 480 / 480 660 / 660 200 / 200
Review of Systems
-
History Source: Patient
Constitutional: Reports Fatigue
EENT: Reports No Symptoms Reported
Respiratory: Reports Cough
Cardiac: Reports No Symptoms
Abdomen/GI: Reports No Symptoms
Genitourinary: Reports No Symptoms
Musculoskeletal: Reports No Symptoms
Skin: Reports No Symptoms
Neuro: Reports No Symptoms
Endocrine: Reports No Symptoms
Hematologic / Lymphatic: Reports No Symptoms
Allergy / Immunology: Reports No Symptoms
Physical Exam
-
General: No Apparent Distress and Comfortable
HEENT: Normocephalic, Atraumatic, Moist Mucous Membranes, Anicteric and No Ptosis
Respiratory: Clear to Auscultation and Non Labored Respirations
Cardiac: Regular Rhythm and S1/S2
GI: Soft, Nontender and Nondistended
Genito-urinary: No Costovertebral Tender
Musculoskeletal: No Clubbing, No Cyanosis and No Edema
Skin: Warm, Dry and IV Access / Catheter Site
Neuro: Awake, Alert and Oriented
Hematologic / Lymphatic: No Lymphadenopathy
Psych: Calm
--- NOTE | 2024-04-29 10:37 | CM ---
CM reviewed chart, patient seen bedside with daughter and caregiver. Patient for discharge today, family requesting referral to [facility], update to liaison with referral. Family will provide transportation home. ELIECER reviewed with daughter, refused to
sign, placed in chart, family provided with copy. CM will continue to follow for all discharge planning needs.
Plan; home with family, caregiver, [facility]N
[2024-04-29] MEDS: COLACE 100 MG PO (10:51)
[2024-04-29] MEDS: PAXIL 20 MG PO (10:52)
[2024-04-29] MEDS: NAMENDA 10 MG PO (10:52)
[2024-04-29] MEDS: MIRALAX 17 GRAMS PO (10:52)
--- NOTE | 2024-04-29 11:56 | VNURNOTE ---
Home Health Liaison met with patient's daughter at bedside to discuss [facility] nurse/therapy, visits, schedule and homebound status. Patient was resting in the chair. Daughter Inocencia is agreeable and understands that visits at home will be 2-3 x per
week to assess and teach medical management. Daughter is aware that [facility] will contact them for start of care in 1-2 days after discharge from .
[facility] referral completed in [facility].
[2024-04-29 13:54] VITALS: BP 141/66
--- NOTE | 2024-04-29 16:59 | W.DCSUMMARY ---
Documented by User: Mauricio Alegre MD, Resident 04/29/24 17:06
Discharge Summary
Discharge Data
Date of Admission: 04/26/24
Date of Discharge: 04/29/24
-
Pending Results: No
Hospital Course
Primary discharge diagnosis
* Acute viral upper respiratory infection
Secondary discharge diagnoses
- Ljonviyq-fy-sdxooc Alzheimer's dementia
- Ambulatory dysfunction
- Hypothyroidism
- Chronic insomnia
- Chronic constipation
- Hyperlipidemia
- Generalized anxiety disorder
- Diet-controlled diabetes mellitus
Hospital course
Fifi Keith, 78-year-old female, was admitted to the hospital on 04-26-24 with weakness and cough. Extensive work-up was unremarkable for acute pathologies and she was presumed to have an acute viral upper respiratory. She was admitted for
observation. She experienced nighttime agitation, and her sleep medications were optimized, which helped. Physical therapy was recommended at a facility, however the family elected to opt for home PT-OT-[facility]N; these were arranged at discharge. Vitals
remained stable throughout and she had no significant medical complaints. Follow-up with primary in 1 week. Consult neurology outpatient.
Discharge Plan
-
Patient Disposition: Home with Home Care
Discharge Diagnosis/Procedures: Acute viral upper respiratory infection
Ajsulsbh-jg-uxqgeb Alzheimer's dementia
Ambulatory dysfunction
Condition: Good
Diet: As tolerated
Activity: With assistance and As tolerated
Driving Restrictions: No driving
Bathing Restrictions: None
Other Services: VN, PT and OT
Referrals:
Alexandru Queen CRNP [Family Provider] - in less than 1 week
Geovany Leggett MD [Active] - in one to two months
Prescriptions:
New
fluticasone propionate [24 Hour Allergy Relief] 50 mcg/actuation spray,suspension
2 spray intranasal DAILY 180 Days Qty: 16 8RF
albuterol sulfate 90 mcg/actuation HFA aerosol inhaler
2 puff inhalation Q6H PRN (Reason: shortness of breath or wheezing) 90 Days Qty: 8.5 10RF
aripiprazole [Abilify] 5 mg tablet
5 mg PO HS Qty: 30 4RF
Continued
levothyroxine [Synthroid] 50 MCG tablet
50 mcg PO DAILY
paroxetine HCl 20 MG tablet
20 mg PO DAILY
doxepin 50 mg Capsule
50 mg PO HS
clonazepam 0.5 mg Tablet
0.5 mg PO HS
simvastatin 40 mg Tablet
40 mg PO QPM
ezetimibe 10 mg Tablet
10 mg PO QPM
memantine 10 mg Tablet
10 mg PO BID
docusate sodium [Colace] 100 mg Capsule
100 mg PO DAILY
gabapentin 300 mg Capsule
300 mg PO HS
polyethylene glycol 3350 [Miralax] 17 gram/dose Powder
17 g PO DAILY
rivastigmine 9.5 mg/24 hour Patch 24 Hour
9.5 mg TRANSDERMAL QPM
Changed
aripiprazole [Abilify] 2 mg Tablet
5 mg PO QPM Qty: 0 0RF
Discharge Orders:
Discharge Patient (As Directed); Ordered 04/29/24
Ordered By: Mauricio Alegre
Discharge Date and Time
Discharge Date/Time: 04/29/24 15:33
Print Language: AFGHAN

Documented by User: All Cuellar DO 04/30/24 10:38
Discharge Summary
Discharge Data
Date of Admission: 04/26/24
Date of Discharge: 04/30/24
Total time spent discharging patient (in min): 32
Discharge Plan
-
Patient Disposition: Home with Home Care
Discharge Diagnosis/Procedures: Acute viral upper respiratory infection
Ebdwlbea-gg-jgvhww Alzheimer's dementia
Ambulatory dysfunction
Condition: Good
Diet: As tolerated
Activity: With assistance and As tolerated
Driving Restrictions: No driving
Bathing Restrictions: None
Other Services: VN, PT and OT
Referrals:
Alexandru Queen CRNP [Family Provider] - in less than 1 week
Geovany Leggett MD [Active] - in one to two months
Prescriptions:
New
fluticasone propionate [24 Hour Allergy Relief] 50 mcg/actuation spray,suspension
2 spray intranasal DAILY 180 Days Qty: 16 8RF
albuterol sulfate 90 mcg/actuation HFA aerosol inhaler
2 puff inhalation Q6H PRN (Reason: shortness of breath or wheezing) 90 Days Qty: 8.5 10RF
aripiprazole [Abilify] 5 mg tablet
5 mg PO HS Qty: 30 4RF
Continued
levothyroxine [Synthroid] 50 MCG tablet
50 mcg PO DAILY
paroxetine HCl 20 MG tablet
20 mg PO DAILY
doxepin 50 mg Capsule
50 mg PO HS
clonazepam 0.5 mg Tablet
0.5 mg PO HS
simvastatin 40 mg Tablet
40 mg PO QPM
ezetimibe 10 mg Tablet
10 mg PO QPM
memantine 10 mg Tablet
10 mg PO BID
docusate sodium [Colace] 100 mg Capsule
100 mg PO DAILY
gabapentin 300 mg Capsule
300 mg PO HS
polyethylene glycol 3350 [Miralax] 17 gram/dose Powder
17 g PO DAILY
rivastigmine 9.5 mg/24 hour Patch 24 Hour
9.5 mg TRANSDERMAL QPM
Changed
aripiprazole [Abilify] 2 mg Tablet
5 mg PO QPM Qty: 0 0RF
Discharge Orders:
Discharge Patient (As Directed); Ordered 04/29/24
Ordered By: Mauricio Alegre
Discharge Date and Time
Discharge Date/Time: 04/29/24 15:33
Print Language: AFGHAN
== END 2024-04-29 15:33 | disposition home health service (06) ==
LOC: 4 WEST ACU 20:39
PROVIDERS: Physician Assistant; Student in an Organized Health Care Education/Training Program; ADMITTING PHYSICIAN Internal Medicine; ATTENDING PHYSICIAN Internal Medicine; EMERGENCY PHYSICIAN Emergency Medicine; FAMILY PHYSICIAN Nurse Practitioner Family
DX: J06.9 Acute upper respiratory infection, unspecified (principal); B97.89 Other viral agents as the cause of diseases classified elsewhere; R53.1 Weakness; R00.1 Bradycardia, unspecified; R53.83 Other fatigue; G30.9 Alzheimer's disease, unspecified; F02.C11 Dementia in other diseases classified elsewhere, severe, with agitation; F02.C3 Dementia in other diseases classified elsewhere, severe, with mood disturbance; F02.C18 Dementia in other diseases classified elsewhere, severe, with other behavioral disturbance; F02.C4 Dementia in other diseases classified elsewhere, severe, with anxiety; W06.XXXA Fall from bed, initial encounter; Y93.89 Activity, other specified; Y92.003 Bedroom of unspecified non-institutional (private) residence as the place of occurrence of the external cause; F32.A Depression, unspecified; I10 Essential (primary) hypertension; E78.00 Pure hypercholesterolemia, unspecified; E03.9 Hypothyroidism, unspecified; G89.29 Other chronic pain; J45.909 Unspecified asthma, uncomplicated; E11.9 Type 2 diabetes mellitus without complications; K21.9 Gastro-esophageal reflux disease without esophagitis; F51.04 Psychophysiologic insomnia; K59.09 Other constipation; F41.1 Generalized anxiety disorder; M54.50 Low back pain, unspecified; R26.2 Difficulty in walking, not elsewhere classified; Z87.891 Personal history of nicotine dependence; Z80.0 Family history of malignant neoplasm of digestive organs; Z96.652 Presence of left artificial knee joint; Z90.49 Acquired absence of other specified parts of digestive tract; Z88.5 Allergy status to narcotic agent; Z88.8 Allergy status to other drugs, medicaments and biological substances; Z91.018 Allergy to other foods; Z79.890 Hormone replacement therapy; Z75.1 Person awaiting admission to adequate facility elsewhere; Z11.52 Encounter for screening for COVID-19
CPT/HCPCS: 70450; 71046; 80048; 80053; 81003; 83036; 84132; 84443; 85025; 85027; 87502; 87811; 93005; 97530; 99285; G0378